=== PATIENT | male | born 1955 | race Caucasian/White ===

== ENCOUNTER → 2020-10-06 14:44 | Outpatient (CLI) | payer BC, SELFPAY ==
[2020-10-08 09:15] LABS: PSA, Free 0.91 ng/mL; Prostate Specific Ag 3.9 ng/mL (0.0-4.0)
== END ==
PROVIDERS: Visit Provider Urology
DX: R97.20 Elevated prostate specific antigen [PSA] (principal)
CPT/HCPCS: 36415; 84153; 84154

== ENCOUNTER → 2021-10-09 14:33 | Outpatient (CLI) | payer BC, SELFPAY ==
[2021-10-11 08:38] LABS: PSA, Free 1.12 ng/mL; Prostate Specific Ag 5.1 ng/mL (0.0-4.0)
== END ==
PROVIDERS: Visit Provider Urology
DX: R97.20 Elevated prostate specific antigen [PSA] (principal)
CPT/HCPCS: 36415; 84153; 84154